=== PATIENT | male | born 2000 | race Caucasian/White ===

== ENCOUNTER 2023-03-26 16:16 | Emergency (ER) | payer OTHER, SELFPAY ==
[2023-03-26 16:25] VITALS: BP 132/82; PULSE 66; RESP 18; TEMP 36.8; O2SAT 100
--- NOTE | 2023-03-26 16:53 | ED.WOUNDLAC ---
HPI - Wound/Laceration General Chief Complaint: Wound/Laceration Stated Complaint: Right thumb laceration Time Seen by Provider: 03/26/23 16:19 Source: patient Mode of arrival: ambulatory Limitations: no limitations History of Present Illness HPI narrative: Srikanth is a 23-year-old male patient presenting to the clinic today with complaints of a laceration to his right thumb across the knuckle. He reports he cut it on a new garage track that he was removing out of a box. His tetanus shot is up-to-date. Related Data Home Medications Medication Instructions Recorded Confirmed No Home Medications 03/26/23 03/26/23 Allergies Allergy/AdvReac Type Severity Reaction Status Date / Time No Known Allergies Allergy Verified 03/26/23 16:34 Review of Systems Review of Systems: Pertinent positives per HPI. Patient denies any fever, chills, rash, headache, visual changes, dizziness, cough, runny nose, sore throat, shortness of breath, chest pain, palpitations, nausea, vomiting, diarrhea, constipation, abdominal pain, or any urinary issues. PMFSH Comments At the time of my signature, I reviewed and agree with the nursing past medical, surgical, social, and family history. There is no relevant family history pertinent to the patient complaint. Exam Narrative: General: Well-developed, well nourished, in no apparent distress Head: Normocephalic, atraumatic. Cardio: Regular rate and rhythm, s1 and s2 normal, no murmur appreciated. Resp: Clear to auscultation bilaterally, no rhonchi, rales, wheezing or rubs. Integumentary: Garland, warm, and dry, horizontal superficial laceration measuring 2 cm in total- 1 cm is gaped when patient flexes right thumb over the dorsal knuckle Course Course Emergency Course: Portions of this record may have been created with voice recognition software. Level of Care: Express Care Visit Vital Signs Vital signs: Vital Signs Temperature 36.8 C 03/26/23 16:25 Pulse Rate 66 03/26/23 16:25 Respiratory Rate 18 03/26/23 16:25 Blood Pressure 132/82 03/26/23 16:25 Pulse Oximetry 100 03/26/23 16:25 Oxygen Delivery Room Air 03/26/23 16:25 Temperature 36.8 C 03/26/23 16:25 Pulse Rate 66 03/26/23 16:25 Respiratory Rate 18 03/26/23 16:25 Blood Pressure 132/82 03/26/23 16:25 Pulse Oximetry 100 03/26/23 16:25 Oxygen Delivery Room Air 03/26/23 16:25 Vital signs reviewed Procedures Laceration Laceration 1: Date: 03/26/23 Site: hand (thumb) Side (If applicable): right Size (cm): 2 Description: linear Depth: simple, single layer Local Anesthetic: lidocaine 1% Amount of anesthesia used (mL): 0.5 Pre-repair: wound explored and irrigated ====== Skin Level ====== Skin layer closed with: nylon Size (cm): 4-0 Number of sutures: 1 Technique: simple, interrupted ====== Subcutaneous Layer ====== ====== Muscle Layer ====== ====== Tendon Layer ====== Dressing: Verbal consent obtained for laceration repair. Risk and benefits explained and patient voiced understanding. Area was cleansed with wound cleanser and a 25 gauge needle was then used to instill (0.5) ml of 1% lidocaine without epi into the wound edges. Area was prepped and draped using sterile technique. A 4-0 suture on a p needle was used to place (1) interrupted sutures bringing the wound edges together- well approximated. Patient tolerated procedure well. Sterile dressing and metal splint applied. MDM - Wound/Laceration MDM Narrative Medical decision making narrative: At the time of visit patient is resting comfortably on the exam table. One interrupted suture was placed in the area that the laceration was gaping open to close the wound. Patient tolerated procedure well. Supportive measures were discussed with the patient he voiced understanding discharge instructions agrees to treatm
== END 2023-03-26 17:00 | disposition home or self-care (01) ==
PROVIDERS: Emergency Provider Nurse Practitioner Family
DX: S61.011A Laceration without foreign body of right thumb without damage to nail, initial encounter (principal); W45.8XXA Other foreign body or object entering through skin, initial encounter
CPT/HCPCS: 12001; 99212; G0463

== ENCOUNTER 2024-11-05 18:32 | Emergency (ER) | payer OTHER, SELFPAY ==
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
--- OUTSIDE RECORDS SUMMARY | 2024-11-05 18:33 | XMS_ITS | Referral Summary ---
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 Gender Identity Not on file Sexual Orientation Not on file Last Filed Vital Signs Vital Sign Reading Time Taken Comments Blood Pressure 120/76 04/17/2024 3:48 PM CDT Pulse 75 04/17/2024 3:48 PM CDT Temperature 37.1 C (98.8 F) 04/17/2024 3:48 PM CDT Respiratory Rate 21 04/17/2024 3:48 PM CDT Oxygen Saturation 98% 04/17/2024 3:48 PM CDT Inhaled Oxygen Concentration - - Weight 93 kg (205 lb) 04/17/2024 3:48 PM CDT Height 185.4 cm (6' 1 ) 04/17/2024 3:48 PM CDT Body Mass Index 27.05 04/17/2024 3:48 PM CDT Plan of Treatment Not on file Insurance [facility] H[facility] Address: [facility] [address] [place] [address] Care Teams Quarry Manager Relationship Specialty Start Date End Date No, Physician PCP - General 04/17/24
--- OUTSIDE RECORDS SUMMARY | 2024-11-05 18:33 | XMS_ITS | Clinical Summary ---
Author Organization [address] Address [address] [place] [id number] Care Team Providers Care Gymnastics Coach Or Instructor Name Role Phone No, Physician Primary Care Provider [phone] Allergies No known active allergies Medications No known medications Active Problems No known active problems Family History Medical History Relation Name Comments Arthritis Other Arthritis; Cancer Other Cancer, unknown ; Diabetes type II Other Diabetes me llitus type 2; Gout Other Gout; Hypertension Other Hypertension; Relation Name Status Comments Other Social History Tobacco Use Types Packs/Day Years Used Date Smoking Tobacco: Never Smokeless Tobacco: Never Tobacco Cessation:Counseling Given: Yes Sex and Gender Information Value Date Recorded Sex Assigned at Not on file 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 Gender Identity Not on file Sexual Orientation Not on file Obstetrics History Last Filed Vital Signs Vital Sign Reading [...] 04/17/2024 3:48 PM CDT Plan of Treatment Health Maintenance Due Date Last Done Comments Depression Screening 1999 Hepatitis C Screening 1999 Varicella Vaccines (1 of 2 - 13+ 2-dose series) 02/07/2012 Regular Well Visit/Exam 18-64 2017 HPV Vaccines (3 - Male 3-dose series) 05/16/2019 12/21/2018, 11/14/2018 Influenza Vaccine (#1) 2024 DTaP/Tdap/Td Vaccine (5 - Td or Tdap) 02/01/2032 01/31/2022, 1999, 1999, Additional history exists Hepatitis B Screening Completed 1999, 999 Pneumococcal vaccine <65 Aged Out No longer eligible based on patient's age to complete this topic Insurance [facility] H[facility]PP[facility] Address: [address] [address] Care Teams Gymnastics Coach Or Instructor Relationship Specialty Start Date End Date No, Physician PCP - General 04/17/24
[2024-11-05 18:38] VITALS: BP 144/86; PULSE 99; RESP 20; TEMP 37.1; O2SAT 98
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
== END 2024-11-05 20:25 | disposition home or self-care (01) ==
PROVIDERS: Emergency Provider Registered Nurse
DX: Z48.01 Encounter for change or removal of surgical wound dressing (principal); Z48.02 Encounter for removal of sutures
CPT/HCPCS: 99213; G0463